=== PATIENT | male | born 1935 | race Caucasian/White ===

== ENCOUNTER 2016-12-11 08:07 | Outpatient (CLI) | payer MEDICARE, OTHER | END 2016-12-11 08:08 | disposition home or self-care (01) | DX: R10.9 Unspecified abdominal pain (principal) ==

== ENCOUNTER 2017-01-20 09:54 | Outpatient (CLI) | payer MEDICARE, OTHER | END 2017-01-20 09:55 | disposition home or self-care (01) | DX: G47.33 Obstructive sleep apnea (adult) (pediatric) (principal); G47.00 Insomnia, unspecified | CPT/HCPCS: 99215; G0463 ==

== ENCOUNTER 2017-01-27 13:24 | Outpatient (CLI) | payer MEDICARE, OTHER | END 2017-01-27 13:25 | disposition home or self-care (01) | DX: Z01.810 Encounter for preprocedural cardiovascular examination (principal) ==

== ENCOUNTER 2017-02-22 10:30 | Outpatient (CLI) | payer MEDICARE, OTHER | END 2017-02-22 10:31 | disposition home or self-care (01) | DX: G47.33 Obstructive sleep apnea (adult) (pediatric) (principal); G47.00 Insomnia, unspecified | CPT/HCPCS: 99214; G0463 ==

== ENCOUNTER 2017-11-15 08:02 | Outpatient (CLI) | payer MEDICARE, OTHER ==
--- NOTE | 2017-11-15 16:24 | Mammography Report ---
DATE OF SERVICE: 11/15/2017 DIAGNOSTIC BILATERAL MAMMOGRAM: 11/15/2017 CLINICAL INDICATION: Painful gynecomastia. TECHNIQUE: Bilateral CC and MLO views. COMPARISON: 07/28/2011. FINDINGS: The breasts demonstrate fatty replacement. Minimal gynecomastia is present bilaterally. Right gynecomastia has decreased from 07/28/2011. No suspicious masses, clustered microcalcifications, or regions of architectural distortion are identified. IMPRESSION: MINIMAL GYNECOMASTIA. RECOMMENDATIONS: CONTINUED CLINICAL MANAGEMENT. BIRADS CATEGORY 2 BENIGN FINDINGS. STANDARD QUALIFYING STATEMENTS: 1. This examination was reviewed with the aid of Computer-Aided Detection (CAD). 2. A negative or benign imaging report should not delay biopsy if clinically suspicious findings are present. Consider surgical consultation if warranted. More than 5% of cancers are not identified by imaging. 3. Dense breasts may obscure an underlying neoplasm. TD: 11/15/2017 16:23
== END 2017-11-15 08:03 | disposition home or self-care (01) ==
LOC: DI 08:02
PROVIDERS: ATTEND Internal Medicine
DX: N62 Hypertrophy of breast (principal)
CPT/HCPCS: 77066

== ENCOUNTER 2018-08-16 10:12 | Outpatient (CLI) | payer MEDICARE, OTHER | END 2018-08-16 10:13 | disposition home or self-care (01) | LOC: SC 10:12 | PROVIDERS: ATTEND Nurse Practitioner Family | DX: G47.33 Obstructive sleep apnea (adult) (pediatric) (principal) | CPT/HCPCS: 99214; G0463; 99212 ==

== ENCOUNTER 2021-02-11 11:29 | Outpatient (CLI) | payer MEDICARE, OTHER ==
--- NOTE | 2021-02-11 12:07 | SLEEP CARE CONSULTATION ---
Information from patient questionnaire entered by Dedra Mann. I have reviewed and concur with the information entered by Dedra Mann. This document represents the service I personally performed and the decisions made by , Sarah Mccracken ARNP. History of Present Illness Service Date and Time: 02/11/2021 1129 Previous diagnosis: Mild, Obstructive Sleep Apnea-Hypopnea Syndrome AHI: 7.5 (in 2012) Reason for follow up: annual (last seen 08/2018) Equipment type: CPAP Equipment obtained from: [employer] (getting supplies as needed) Mask style: Nasal Mask brand: Respironics (Dreamwear) Backup mask available: Yes (old mask) Last cushion change: 1.5 months Prior sleep studies: Yes Year and Where: 2012 - [facility] Type of Sleep Study: Polysomnography HPI additional information: MAXI SILVERMAN was diagnosed to have mild, AHI 7.5, obstructive sleep apnea- hypopnea syndrome and returned today for CPAP therapy annual follow-up. CPAP Compliance Data - Data Reviewed with Patient Average duration of nightly device use: 9 hours 16 minutes Compliance rate %: 99.4 Current pressure setting (cmH2O): 9 Average residual AHI: 1.3 Average large leak: 19 minutes 29 seconds Subjective Patient concerns: denies: aerophagia, mask discomfort, air blowing in eyes, mask leak noise, condensation in mask/hose, nasal congestion, dry mouth, nose, throat, epistaxis, other Observed to snore while using device: No Current pressure setting perceived as: comfortable On therapy, patient: reports: sleeping better, awakening more refreshed, being more awake and alert during the day, more rested overall. denies: drowsiness while driving Initial Franklin Sleepiness Scale score: 5 (in 2011) Current Franklin Sleepiness Scale score: 1 Allergies and Home Medications Home medication list reviewed: Yes (no new meds) Review of Systems Review of systems same as previous: Yes (no changes) Physical Exam Heart Rate: 63 O2 Saturation: 98 Height: 6 ft Weight: 201 lb Body Mass Index: 27.2 BMI Classification: Overweight Impression and Plan 1. Obstructive Sleep Apnea-Hypopnea Syndrome, mild, with excellent treatment compliance and good apnea control. On CPAP therapy, the patient has better sleep quality and is more rested overall. He needs to replace his machine which was last replaced in 2012. The patients CPAP is over 5 years old and of reasonable use. In addition, a knob on top has broken. Thus, the CPAP will be updated. A DWO prescription will be made. Compliance guidelines for new device and follow up discussed. Patient's apnea severity and rationale for treatment to reduce apnea, improve sleep quality and reduce cardiovascular and cerebrovascular events was reviewed. I also reviewed the benefit of consistent device use of CPAP for hypertension. * Continue auto CPAP pressure at 9 cmH2O * Update machine and supplies * Notify me if snoring with mask or feeling that the pressure is too much or too little * Attempt to lose weight * Call this office if any problems using CPAP * Return for follow up one month after getting new machine, or sooner if concerns arise Counseling Topics: Spare mask, Weight loss health impact Visit Type: In Office Time Spent with Patient (minutes): 22 Provider Statement: I spent 100% of the Face to Face Visit with the patient with greater than 50% spent counseling the patient and coordination of care.
== END 2021-02-11 11:30 | disposition home or self-care (01) ==
LOC: SC 11:29
PROVIDERS: ATTEND Nurse Practitioner Family
DX: G47.33 Obstructive sleep apnea (adult) (pediatric) (principal); E66.3 Overweight; Z68.27 Body mass index [BMI] 27.0-27.9, adult
CPT/HCPCS: 99213; G0463; 99212

== ENCOUNTER 2021-05-18 11:12 | Outpatient (CLI) | payer MEDICARE, OTHER ==
--- NOTE | 2021-05-18 12:36 | SLEEP CARE CONSULTATION ---
Information from patient questionnaire entered by Dedra Mann. I have reviewed and concur with the information entered by Dedra Mann. This document represents the service I personally performed and the decisions made by me, Judah Torre MD, [facility]. History of Present Illness Service Date and Time: 05/18/2021 1112 Previous diagnosis: Mild, Obstructive Sleep Apnea-Hypopnea Syndrome AHI: 7.5 (in 2012) Reason for follow up: first compliance after device update Equipment type: CPAP Equipment obtained from: [employer] (getting supplies as needed) Mask style: Nasal Prior sleep studies: Yes Year and Where: [facility] - [facility] Type of Sleep Study: Polysomnography HPI additional information: HPI: Mr. Ngo was diagnosed to have mild obstructive sleep apnea-hypopnea syndrome (AHI = 7.5) and returns today for follow up of CPAP therapy. The [facility] ent purchased the device from [employer] and was fitted with a nasal mask. He uses the device nightly and all through the night. The compliance report shows that he uses the device 30 nights out of the past 30 nights, averaging 8.9 hours a night. He complains of no particular problem with the device such as soreness on the face, dry nose, epistaxis, nasal congestion or headache. He thinks that the pressure of 9 cmH2O is too high on his new DreamStation AutoCPAP. On the CPAP therapy he notices improvement in his sleep quality, and that he wakes up feeling fresher in the morning and more awake/alert during the day. His notices no snore at all. She also uses a CPAP. [place] Sleepiness Scale score is 3. The average residual AHI is 1.0; and average time in large leak per day is 1.3 hours a night. CPAP Compliance Data - Data Reviewed with Patient Average duration of nightly device use: 8 hr 51 min Compliance rate %: 100 Current pressure setting (cmH2O): 9 Humidity settin Heated hose settin Average residual AHI: 1.0 Average large leak: 1 hr 17 min Subjective Current pressure setting perceived as: too low Initial [place] Sleepiness Scale score: 5 (in 2011) Current [place] Sleepiness Scale score: 3 Allergies and Home Medications Drug allergies reviewed: Yes Home medication list reviewed: Yes Review of Systems Review of systems same as previous: Yes Physical Exam Height: 6 ft Weight: 200 lb Body Mass Index: 27.1 BMI Classification: Overweight Impression and Plan IMPRESSION: 1. Obstructive Sleep Apnea-Hypopnea Syndrome, mild, with the patient continuing to do well on nasal CPAP therapy. He has excellent compliance and significant clinical benefits. The current pressure appears effective but not comfortable. Overall, he is very satisfied with treatment and plans to continue with it long-term. I informed him of the recall. I would like to return to using his old Respironics CPAP which is not a DreamStation. He says the pressure feels fine on his old machine and does not need adjustment. PLAN: 1. Return to using his old CPAP. 2. [employer] his new machine on [employer]SRC-update 3. Return in one year for follow up or earlier if there is any problem with the treatment. Counseling Topics: Weight control Follow up with Sleep Care in: 3 months Visit Type: In Office Time Spent with Patient (minutes): 15 Provider Statement: I spent 100% of the Face to Face Visit with the patient with greater than 50% spent counseling the patient and coordination of care.
== END 2021-05-18 11:13 | disposition home or self-care (01) ==
LOC: SC 11:12
PROVIDERS: ATTEND Internal Medicine Pulmonary Disease
DX: G47.33 Obstructive sleep apnea (adult) (pediatric) (principal)
CPT/HCPCS: 99212; G0463

== ENCOUNTER 2021-07-08 07:00 | Outpatient (CLI) | payer MEDICARE, OTHER | END 2021-07-08 23:59 | disposition home or self-care (01) | LOC: LAB 07:00 | PROVIDERS: ATTEND Physician Assistant Medical | DX: L30.8 Other specified dermatitis (principal) | CPT/HCPCS: 87070; 87205 ==

== ENCOUNTER 2021-08-10 10:47 | Outpatient (CLI) | payer MEDICARE, OTHER ==
--- NOTE | 2021-08-10 12:52 | SLEEP CARE CONSULTATION ---
Information from patient questionnaire entered by Navya Ames. I have reviewed and concur with the information entered by Navya Ames. This document represents the service I personally performed and the decisions made by me, Judah Torre MD, [facility]. History of Present Illness Service Date and Time: 08/10/2021 1047 Previous diagnosis: Mild, Obstructive Sleep Apnea-Hypopnea Syndrome AHI: 7.5 (in 2012) Reason for follow up: three month Equipment type: CPAP Equipment obtained from: [employer] (getting supplies as needed) Mask style: Nasal Prior sleep studies: Yes Year and Where: 2012 - [facility] Type of Sleep Study: Polysomnography HPI additional information: Mr. Ngo was diagnosed to have mild obstructive sleep apnea-hypopnea syndrome (AHI = 7.5) and returns today for follow up of CPAP therapy. He recently received the new Respironics DreamStation 2 device from [employer]. He wears a nasal mask. He uses the device nightly and all through the night. The compliance report shows that he uses the device 72 nights out of the past 90 nights, averaging 9.5 hours a night. He complains of no particular problem with the device such as soreness on the face, dry nose, epistaxis, nasal congestion or headache. He thinks that the pressure of 9 cmH2O comfortable (any lower he feels suffocated). On the CPAP therapy he notices improvement in his sleep quality, and that he wakes up feeling fresher in the morning and more awake/alert during the day. His notices no snore at all. She also uses a CPAP. Homer Sleepiness Scale score is 3. The average residual AHI is 0.9; and average time in large leak per day is 41 minutes a night. Sleep Study - Results Type of Sleep Study: Polysomnography Prior sleep studies: Yes Year and Where: 2012 - [facility] CPAP Compliance Data - Data Reviewed with Patient Average duration of nightly device use: 9 hours 29 minutes Compliance rate %: 78.9 Current pressure setting (cmH2O): 9 Humidity settin Heated hose settin Average residual AHI: 0.9 Average large leak: 41 minutes 13 seconds Subjective Current pressure setting perceived as: comfortable Initial Homer Sleepiness Scale score: 5 (in 2011) Current [place] Sleepiness Scale score: 3 Allergies and Home Medications Drug allergies reviewed: Yes Home medication list reviewed: Yes Review of Systems Review of systems same as previous: Yes Physical Exam Height: 6 ft Weight: 200 lb Body Mass Index: 27.1 BMI Classification: Overweight Impression and Plan IMPRESSION: 1. Obstructive Sleep Apnea-Hypopnea Syndrome, mild, with the patient continuing to do well on nasal CPAP therapy. He has excellent compliance and significant clinical benefits. The current pressure appears effective but not comfortable. Overall, he is very satisfied with treatment and plans to continue with it long-term. PLAN: 1. Continue with CPAP set at 9 cm. 2. Return in one year for follow up or earlier if there is any problem with the treatment. Follow up with Sleep Care in: 1 year Visit Type: In Office Time Spent with Patient (minutes): 15 Provider Statement: I spent 100% of the Face to Face Visit with the patient with greater than 50% spent counseling the patient and coordination of care.
== END 2021-08-10 10:48 | disposition home or self-care (01) ==
LOC: SC 10:47
PROVIDERS: ATTEND Internal Medicine Pulmonary Disease
DX: G47.33 Obstructive sleep apnea (adult) (pediatric) (principal)
CPT/HCPCS: 99212; G0463

== ENCOUNTER 2021-10-14 09:05 | Outpatient (CLI) | payer MEDICARE, OTHER ==
--- NOTE | 2021-10-14 09:57 | XRAY Report ---
PROCEDURE: Knee 3 View LT INDICATIONS: PAIN OF LEFT KNEE JOINT TECHNIQUE: 3 views of the left knee(s) were acquired. COMPARISON: None. FINDINGS: Bones: Severe tricompartmental degenerative changes of the left knee with moderate joint space loss o f the patellofemoral compartment predominantly involving the lateral aspect of the patellofemoral wendi nt. This is best seen on the sunrise view. Prominent marginal osteophytes. Chondrocalcinosis is noted in the medial and lateral femorotibial compartments. No acute fracture or dislocation. No suspicious osseous lesions. Soft tissues: Moderate sized joint effusion. No suspicious soft tissue calcifications. IMPRESSION: Left knee without acute fracture or dislocation. Severe tricompartmental osteoarthrosis of the left knee with moderate sized joint effusion. Reviewed by: Sav Carbajal MD on 10/14/2021 9:55 AM PST Approved by: Sav Carbajal MD on 10/14/2021 9:55 AM PST Station ID: [id number]
== END 2021-10-14 09:06 | disposition home or self-care (01) ==
LOC: DI.S 09:05
PROVIDERS: ATTEND Internal Medicine
DX: M17.12 Unilateral primary osteoarthritis, left knee (principal)

== ENCOUNTER 2022-06-23 15:13 | Outpatient (CLI) | payer MEDICARE, OTHER ==
--- NOTE | 2022-06-23 16:21 | XRAY Report ---
PROCEDURE: Chest 2 View X-Ray INDICATIONS: COUGH TECHNIQUE: 2 view(s) of the chest. COMPARISON: None. FINDINGS: Surgical changes and devices: None. Lungs and pleura: No pleural effusions or pneumothorax. Lungs are clear. Mediastinum: Mediastinal contours are normal. Heart size is normal. Bones and chest wall: No suspicious bony abnormalities. Soft tissues appear unremarkable. IMPRESSION: No evidence for active disease in the chest. Reviewed by: Lm Ruiz MD on 06/23/2022 4:20 PM PDT Approved by: Lm Ruiz MD on 06/23/2022 4:20 PM PDT Station ID: [id number]
== END 2022-06-23 15:14 | disposition home or self-care (01) ==
LOC: DI.S 15:13
PROVIDERS: ATTEND Nurse Practitioner Family
DX: R05.9 Cough, unspecified (principal)

== ENCOUNTER 2022-07-02 11:49 | Outpatient (CLI) | payer MEDICARE, OTHER ==
--- NOTE | 2022-07-02 11:37 | XRAY Report ---
PROCEDURE: Chest 2 View X-Ray INDICATIONS: PRODUCTIVE COUGH TECHNIQUE: 2 view(s) of the chest. COMPARISON: 06/23/2022 FINDINGS: Surgical changes and devices: None. Lungs and pleura: No pleural effusions or pneumothorax. Lungs are hyperinflated but clear. Mediastinum: Mediastinal contours are normal. Heart size is normal. Bones and chest wall: No suspicious bony abnormalities. Soft tissues appear unremarkable. IMPRESSION: No acute cardiopulmonary disease. Reviewed by: Renetta Dolan MD on 07/02/2022 11:36 AM PDT Approved by: Renetta Dolan MD on 07/02/2022 11:36 AM PDT Station ID: [id number]
== END 2022-07-02 11:50 | disposition home or self-care (01) ==
LOC: DI.S 11:49
PROVIDERS: ATTEND Physician Assistant
DX: R05.9 Cough, unspecified (principal)

== ENCOUNTER 2022-07-10 08:00 | Outpatient (CLI) | payer MEDICARE, OTHER ==
--- NOTE | 2022-07-10 15:08 | XRAY Report ---
PROCEDURE: Chest 2 View X-Ray INDICATIONS: COUGH TECHNIQUE: 2 view(s) of the chest. COMPARISON: None. FINDINGS: Surgical changes and devices: None Lungs and pleura: Hyperinflation and chronic interstitial changes without focal infiltrate or pneumo thorax Mediastinum: Mediastinal contours are normal. Heart size is normal. Bones and chest wall: No suspicious bony abnormalities. Soft tissues appear unremarkable. IMPRESSION: No acute cardiopulmonary findings Reviewed by: Manuel Vo MD on 07/10/2022 2:06 PM AKDT Approved by: Manuel Vo MD on 07/10/2022 2:06 PM AKDT Station ID: [id number]
== END 2022-07-10 23:59 | disposition home or self-care (01) ==
LOC: DI.S 08:00
PROVIDERS: ATTEND Physician Assistant Medical
DX: J40 Bronchitis, not specified as acute or chronic (principal); R05.8 Other specified cough

== ENCOUNTER 2022-08-31 16:01 | Outpatient (CLI) | payer MEDICARE, OTHER ==
[2022-08-31 15:49] VITALS: BP 126/62
--- NOTE | 2022-08-31 15:49 | SLEEP CARE CONSULTATION ---
Information from patient questionnaire entered by Maritza Lindsay. I have reviewed and concur with the information entered by Maritza Lindsay. This document represents the service I personally performed and the decisions made by me, Sarah Mccracken ARNP. History of Present Illness Service Date and Time: 08/31/2022 1520 Previous diagnosis: Mild, Obstructive Sleep Apnea-Hypopnea Syndrome AHI: 7.5 (in 2012) Reason for follow up: annual (LAST SEEN 05/2021) Equipment type: CPAP (DREAMSTATION 2) Equipment obtained from: [employer] (getting supplies as needed) Mask style: Nasal Mask brand: Respironics (Dreamwear, medium) Backup mask available: Yes (old mask) Last cushion change: monthly Prior sleep studies: Yes Year and Where: 2012 - [facility] Type of Sleep Study: Polysomnography HPI additional information: MAXI SILVERMAN was diagnosed to have mild, AHI 7.5, obstructive sleep apnea- hypopnea syndrome and returns via telehealth visit today for CPAP therapy annual follow-up. Sleep Study - Results Type of Sleep Study: Polysomnography Prior sleep studies: Yes Year and Where: 2013 - [facility] CPAP Compliance Data - Data Reviewed with Patient Average duration of nightly device use: 9 HRS, 36 MIN, 13SEC Compliance rate %: 99.4 (03/03/2022-08/29/2022; 179/180 days used) Current pressure setting (cmH2O): 9 Average residual AHI: 0.5 Central apnea: 0 Obstructive apnea: 0.1 Hypopnea: 0.4 Compliance data discussion: Patient is using his CPAP with his naps. Subjective Missed days of use due to: reports: other (power outage) Patient concerns: denies: aerophagia, mask discomfort, air blowing in eyes, mask leak noise, condensation in mask/hose, nasal congestion, dry mouth, nose, throat, epistaxis Observed to snore while using device: No Current pressure setting perceived as: comfortable On therapy, patient: reports: sleeping better, awakening more refreshed, being more awake and alert during the day, more rested overall. denies: drowsiness while driving Initial [place] Sleepiness Scale score: 5 (in 2011) Current [place] Sleepiness Scale score: 4 Allergies and Home Medications Drug allergies reviewed: Yes (NKDA) Home medication list reviewed: Yes (no changes) Review of Systems Review of systems same as previous: Yes (no changes) Physical Exam Vital signs obtained and entered by: VIA PHONE Blood Pressure: 126/62 (PER PT) Height: 6 ft (PER PT) Weight: 193 lb (PER PT) Body Mass Index: 26.2 BMI Classification: Overweight Impression and Plan 1. Obstructive Sleep Apnea-Hypopnea Syndrome, mild, with good treatment compliance and good apnea control. On CPAP therapy, the patient has better sleep quality and is more rested overall. Patient has significant improvement of their sleep apnea and are satisfied with current CPAP therapy. Patient denies problems with oral dryness, nasal congestion, epistaxis, skin irritation or aerophagia. Patient's apnea severity and rationale for treatment to reduce apnea, improve sleep quality and reduce cardiovascular and cerebrovascular events was reviewed. I also reviewed the benefit of consistent device use of CPAP for hypertension. 2. Overweight, unspecified. Currently patients BMI is 26.2. Obesity increases the risk of apnea, CPAP pressure requirements and overall health risks especially cardiovascular and diabetes. Thus patient is advised to lose weight. * Continue CPAP pressure at 9 cmH2O * Update supplies * Notify me if snoring with mask or feeling that the pressure is too much or too little * Attempt to lose weight * Call this office if any problems using CPAP * Return for follow up in 1 year, or sooner if concerns arise Counseling Topics: Spare mask, Weight loss health impact Visit Type: Telehealth Phone Video Type: Sheryl Patient Location: Home Location of Provider: Office Patient agrees and consents to this telehealth visit type: Yes Patient agrees to have their insurance billed: Yes Time Spent with Patient (minutes): 10 Provider Statement: I spent 100% of the Telehealth Phone Call with the patient with greater than 50% spent counseling the patient and coordination of care.
== END 2022-08-31 16:02 | disposition home or self-care (01) ==
LOC: SC 16:01
PROVIDERS: ATTEND Nurse Practitioner Family
DX: G47.33 Obstructive sleep apnea (adult) (pediatric) (principal); E66.3 Overweight; Z68.26 Body mass index [BMI] 26.0-26.9, adult

== ENCOUNTER 2022-12-18 11:06 | Emergency (ER) | payer MEDICARE, OTHER ==
--- NOTE | 2022-12-18 11:55 | ED Physician Documentation ---
PD HPI URI - Stated complaint Stated Complaint: FEVER - Chief complaint Chief Complaint: Resp - History obtained from History obtained from: Patient - History of Present Illness Timing - onset: How many weeks ago (1) Timing duration: Weeks (1) Timing details: Gradual onset, Still present (increasing cough and sputum production.) Associated symptoms: Fever, Nasal congestion, Productive cough, Dyspnea. No: Chest pain Contributing factors: No: COPD / asthma Similar symptoms before: Has not had sx before Review of Systems Constitutional: reports: Fever Nose: reports: Congestion Cardiac: denies: Chest pain / pressure Respiratory: reports: Dyspnea, Cough GI: denies: Vomiting, Diarrhea PD PAST MEDICAL HISTORY - Past Medical History Cardiovascular: Hypertension, Atrial fibrillation, Arrhythmia (frequent pACs.) Respiratory: None GI: GERD : Renal insuffiency Psych: Depression - Past Surgical History Past Surgical History: Yes General: Appendectomy, Bowel surgery, Colonoscopy Ortho: Other Neuro: Craniotomy, Other - Present Medications Home Medications: Ambulatory Orders Medication Instructions Recorded Confirmed Aspirin/Calcium Carbonate/Mag 325 mg PO DAILY 02/04/15 08/31/22 [Aspirin Buffered 325 mg Tab] Lisinopril 20 mg PO DAILY 02/04/15 08/31/22 [place]-3/Dha/Epa/Fish Oil [Fish Oil 6 each PO DAILY 02/04/15 08/31/22 1,000 mg Softgel] Omeprazole [Prilosec] 10 mg PO DAILY 02/04/15 08/31/22 Tadalafil [Cialis] 5 mg PO DAILY 02/04/15 08/31/22 Zolpidem Tartrate 5 mg PO DAILY PRN 02/04/15 08/31/22 hydroCHLOROthiazide 12.5 mg PO DAILY 02/04/15 08/31/22 [Hydrochlorothiazide] Ibuprofen 600 mg PO Q8H PRN #30 tablet 04/19/15 08/31/22 Omeprazole [PriLOSEC] 20 mg PO DAILY #14 capsule 04/19/15 08/31/22 Albuterol 2.5 mg INH Q4H PRN #30 ml 12/18/22 Amox/Clav 875/125 [Augmentin] 1 each PO Q12H #14 tablet 12/18/22 Benzonatate [Tessalon] 100 mg PO TID PRN #20 cap 12/18/22 - Allergies Allergies/Adverse Reactions: Allergies Allergy/AdvReac Type Severity Reaction Status Date / Time No Known Drug Allergies Allergy Verified 12/18/22 11:34 - Social History Does the pt smoke?: No Smoking Status: Never smoker Does the pt drink ETOH?: Yes Does the pt have substance abuse?: No - POLST Patient has POLST: No PD ED PE NORMAL - Vitals Vital signs reviewed: Yes - General General: Alert and oriented X 3, No acute distress, Well developed/nourished - HEENT HEENT: Pharynx benign - Neck Neck: Supple, no meningeal sign, No adenopathy - Cardiac Cardiac: No: RRR (regularly irregular. Monitor showing atrial bigeminy at times. Frequent PACs. ) - Respiratory Respiratory: No respiratory distress. No: Clear bilaterally (no coarse sounds. has some exp wheezes scattered. ) - Abdomen Abdomen: Soft, Non tender - Derm Derm: Normal color, Warm and dry - Extremities Extremities: No edema, No calf tenderness / cord Results - Vitals Vitals: Oxygen O2 Source Room air - Rads (name of study) chest xray Relevant Findings:: Prelim report reviewed (no infiltrates), EMP independent interpretation of test PD Medical Decision Making - ED course Complexity details: considered differential (sounds initial URI but now progressing, and consider secondary bacterial bronchitis clinically. No pneumonia. ), d/w patient Departure - Departure Disposition: 01 Home, Self Care Clinical Impression: Bronchitis, Lower respiratory infection (e.g., bronchitis, pneumonia, pneumonitis, pulmonitis) Condition: Stable Record reviewed to determine appropriate education?: Yes Instructions: ED Upper Resp Infec Abx Tx Follow-Up: Abraham Deras MD [Primary Care Provider] - Prescriptions: Albuterol 2.5 mg INH Q4H PRN #30 ml PRN Reason: Wheezing Amox/Clav 875/125 [Augmentin] 1 each PO Q12H #14 tablet Benzonatate [Tessalon] 100 mg PO TID PRN #20 cap PRN Reason: Cough Comments: We can try to improve on your symptoms with an inhaler/nebulizer as well as benzonatate/Tessalon for cough. At this point with the persistent cough and worsening, I would presume you have a secondary bacterial bronchitis. We can add Augmentin antibiotic twice daily for a week for that. Use your nebulizer at home 2-3 times daily to help improve airflow and decrease cough and this often will help bring up the congestion better. I sent your prescriptions to [facility] in [place]. Stay well-hydrated otherwise. Continue any other usual medicines. Discharge Date/Time: 12/18/22 12:52
--- NOTE | 2022-12-18 11:58 | XRAY Report ---
PROCEDURE: Chest 2 View X-Ray INDICATIONS: productive cough. TECHNIQUE: 2 views of the chest were acquired. COMPARISON: None. FINDINGS: Surgical changes and devices: None. Lungs and pleura: No pleural effusions or pneumothorax. Lungs are clear. Mediastinum: Mediastinal contours are normal. Heart size is normal. Bones and chest wall: No suspicious bony abnormalities. Soft tissues appear unremarkable. IMPRESSION: No acute cardiopulmonary abnormality. Reviewed by: Jeffery Boyd on 12/18/2022 10:56 AM ENA Approved by: Jeffery Boyd on 12/18/2022 10:56 AM [facility] Station ID: [id number]
[2022-12-18 12:05] VITALS: BP 155/60
[2022-12-18] MEDS ORDERED: AMOX/CLAV 875 MG/125 MG TABLET PO STA (12:14)
[2022-12-18] MEDS ORDERED: BENZONATATE 100 MG CAPSULE PO STA (12:14)
[2022-12-18] MEDS ORDERED: guaiFENesin/DEXTROMETHORPHAN 10 ML UDC PO STA (12:15)
== END 2022-12-18 12:52 | disposition home or self-care (01) ==
LOC: ED 11:06
DX: J20.9 Acute bronchitis, unspecified (principal)
CPT/HCPCS: 71046; 99283; A9270

== ENCOUNTER 2023-09-08 11:49 | Outpatient (CLI) | payer MEDICARE, OTHER ==
--- NOTE | 2023-09-08 10:40 | SLEEP CARE CONSULTATION ---
Information from patient questionnaire entered by Maritza Lindsay. I have reviewed and concur with the information entered by Maritza Lindsay. This document represents the service I personally performed and the decisions made by me, Sarah Mccracken ARNP. History of Present Illness Service Date and Time: 09/08/2023 1040 Previous diagnosis: Mild, Obstructive Sleep Apnea-Hypopnea Syndrome AHI: 7.5 (in 2012) Reason for follow up: annual (LAST SEEN 08/2022) Equipment type: CPAP (DREAMSTATION 2; s/u ) Equipment obtained from: [employer] (getting supplies as needed) Mask style: Nasal Mask brand: Respironics (Dreamwear) Backup mask available: Yes Last cushion change: 1 week [facility] Type of Sleep Study: Polysomnography HPI additional information: MAXI SILVERMAN was diagnosed to have mild, AHI 7.5, obstructive sleep apnea- hypopnea syndrome and returns via telephone visit today for CPAP therapy annual follow-up. Sleep Study - Results Type of Sleep Study: Polysomnography Prior sleep [facility]: Yes [facility] CP[facility] Compliance Data - Data Reviewed with Patient Average duration of nightly device use: 9 HRS 39 MINS 51 SECS Compliance rate %: 100 (09/06/2022-09/05/2023; 365/365 days used) Current pressure setting (cmH2O): 9 Average residual AHI: 0.4 Central apnea: 0 Obstructive apnea: 0.1 Hypopnea: 0.3 Average large leak: 0 secs Subjective Patient concerns: denies: aerophagia, mask discomfort, air blowing in eyes, mask leak noise, condensation in mask/hose, nasal congestion, dry mouth, nose, throat, epistaxis Observed to snore while using device: No Current pressure setting perceived as: comfortable On therapy, patient: reports: sleeping better, awakening more refreshed, being more awake and alert during the day, more rested overall. denies: drowsiness while driving Initial [place] Sleepiness Scale score: 5 (in 2011) Current [place] Sleepiness Scale score: 3 Allergies and Home Medications Known drug allergies: No Drug allergies reviewed: Yes Home medication list reviewed: Yes (no changes) Allergy and home medication list: Allergies No Known Drug Allergies Allergy (Verified 09/07/23 10:25) Review of Systems Review of systems same as previous: Yes (no changes) Physical Exam Vital signs obtained and entered by: SARAH THOMAS Blood Pressure: 126/64 (per pt) Height: 6 ft Weight: 195 lb (per pt) Body Mass Index: 26.4 BMI Classification: Overweight Impression and Plan 1. Obstructive Sleep Apnea-Hypopnea Syndrome, mild, with good treatment compliance and good apnea control. On CPAP therapy, the patient has better sleep quality and is more rested overall. Patient has significant improvement of their sleep apnea and is satisfied with current CPAP therapy. Patient denies problems with oral dryness, nasal congestion, epistaxis, skin irritation or aerophagia. Patient's apnea severity and rationale for treatment to reduce apnea, improve sleep quality and reduce cardiovascular and cerebrovascular events was reviewed. I also reviewed the benefit of consistent device use of CPAP for hypertension. 2. Overweight, unspecified. Currently patients BMI is 26.4. Obesity increases the risk of apnea, CPAP pressure requirements and overall health risks especially cardiovascular and diabetes. Thus patient is advised to lose weight. * Continue CPAP pressure at 9 cmH2O * Update supply prescription * Notify me if snoring with mask or feeling that the pressure is too much or too little * Attempt to lose weight * Call this office if any problems using CPAP * Return for follow up in 12 months, or sooner if concerns arise Counseling Topics: Spare mask, Weight loss health impact Prescriptions: Device supplies Follow up with Sleep Care in: 1 year Visit Type: Telehealth Phone Video Type: D[employer] Patient Location: Home Other Participants: Spouse/Significant Other Location of Provider: Office Patient agrees and consents to this telehealth visit type: Yes Patient agrees to have their insurance billed: Yes Time Spent with Patient (minutes): 11 Provider Statement: I spent 100% of the Telehealth Phone Call with the patient with greater than 50% spent counseling the patient and coordination of care.
[2023-09-08 10:47] VITALS: BP 126/64
== END 2023-09-08 11:50 | disposition home or self-care (01) ==
LOC: SC 11:49
PROVIDERS: ATTEND Nurse Practitioner Family
DX: G47.33 Obstructive sleep apnea (adult) (pediatric) (principal); E66.3 Overweight; Z68.26 Body mass index [BMI] 26.0-26.9, adult
CPT/HCPCS: 99442